=== PATIENT | female | born 1960 | race American Indian/Alaskan Native ===

== ENCOUNTER 2016-09-26 10:29 | Outpatient (CLI) | payer BC ==
--- NOTE | 2016-09-27 14:52 | Mammography Report ---
BILATERAL DIGITAL SCREENING MAMMOGRAM with CAD : 09/26/16 10:29:00 CLINICAL: Routine screening. COMPARISON:09/19/15 FINDINGS: The breasts are heterogeneously dense, which may obscure small masses.Stable widely scattered bilateral calcifications with benign morphology. No mass, architectural distortion or suspicious calcifications. IMPRESSION: No mammographic evidence of malignancy. BI-RADS CATEGORY: 2 -- Benign RECOMMENDATION: Routine mammographic screening in one year. COMMENT: Patient follow-up letters are generated by our [employer] application.
== END 2016-09-26 10:30 | disposition home or self-care (01) ==
LOC: SPVWC 10:29
PROVIDERS: ATTEND Internal Medicine
DX: Z12.31 Encounter for screening mammogram for malignant neoplasm of breast (principal); I10 Essential (primary) hypertension
CPT/HCPCS: 77067; G0202

== ENCOUNTER 2017-03-17 17:22 | Emergency (ER) | payer BC ==
[2017-03-17 17:28] VITALS: BP 146/83
--- NOTE | 2017-03-17 23:59 | Emergency Department Report ---
ED ENT HPI - General Chief complaint: Earache Stated complaint: RIGHT EAR PAIN Time Seen by Provider: 03/17/17 23:55 Source: patient Mode of arrival: Ambulatory Limitations: No Limitations - History of Present Illness Initial comments: 56-year-old female past medical history gout presents with complaint of one week of right earache. Patient denies fevers or chills nausea or vomiting headache blurry vision or tinnitus. Denies any discharge from the ear. States she was using [id number] eardrops with minimal relief of her discomfort. MD complaint: ear pain Onset/Timin -: week(s) Location: R ear Severity: moderate Severity scale (0 -10): 5 Quality: aching Consistency: constant Improves with: none - Related Data Home Medications Medication Instructions Recorded Confirmed Last Taken Atenolol/Chlorthalidone [Tenoretic 1 tab PO QDAY 03/27/15 03/27/15 Unknown 50-25] Previous Rx's Medication Instructions Recorded Last Taken Type Acetamin/Codeine 120-12Mg/5 ml 5 ml PO TID PRN #30 ml 06/06/15 Unknown Rx [Tylenol/Codeine] Ciprofloxacin HCl [Ciprofloxacin 500 mg PO Q12HR #14 tab 06/06/15 Unknown Rx TAB] Acetaminophen/Codeine [Tylenol 1 tab PO Q6H PRN #20 tab 08/24/15 Unknown Rx /Codeine # 3 tab] Cyclobenzaprine [Flexeril] 10 mg PO TID PRN #30 tablet 08/24/15 Unknown Rx Ibuprofen [Motrin] 600 mg PO Q8H PRN #40 tablet 08/24/15 Unknown Rx Amoxicillin/K Clav Tab [Augmentin 1 tab PO Q12HR #14 tab 03/17/17 Unknown Rx 875 mg] Ibuprofen [Motrin] 800 mg PO Q8HR PRN #30 tablet 03/17/17 Unknown Rx Allergies Allergy/AdvReac Type Severity Reaction Status Date / Time lisinopril Allergy Unknown Verified 08/24/15 16:08 ED Dental HPI - General Chief complaint: Earache Stated complaint: RIGHT EAR PAIN Time Seen by Provider: 03/17/17 23:55 Source: patient Mode of arrival: Ambulatory Limitations: No Limitations - Related Data Home Medications Medication Instructions Recorded Confirmed Last Taken Atenolol/Chlorthalidone [Tenoretic 1 tab PO QDAY 03/27/15 03/27/15 Unknown 50-25] Previous Rx's Medication Instructions Recorded Last Taken Type Acetamin/Codeine 120-12Mg/5 ml 5 ml PO TID PRN #30 ml 06/06/15 Unknown Rx [Tylenol/Codeine] Ciprofloxacin HCl [Ciprofloxacin 500 mg PO Q12HR #14 tab 06/06/15 Unknown Rx TAB] Acetaminophen/Codeine [Tylenol 1 tab PO Q6H PRN #20 tab 08/24/15 Unknown Rx /Codeine # 3 tab] Cyclobenzaprine [Flexeril] 10 mg PO TID PRN #30 tablet 08/24/15 Unknown Rx Ibuprofen [Motrin] 600 mg PO Q8H PRN #40 tablet 08/24/15 Unknown Rx Amoxicillin/K Clav Tab [Augmentin 1 tab PO Q12HR #14 tab 03/17/17 Unknown Rx 875 mg] Ibuprofen [Motrin] 800 mg PO Q8HR PRN #30 tablet 03/17/17 Unknown Rx Allergies Allergy/AdvReac Type Severity Reaction Status Date / Time lisinopril Allergy Unknown Verified 08/24/15 16:08 ED Review of Systems ROS: Stated complaint: RIGHT EAR PAIN Other details as noted in HPI Constitutional: denies: chills, fever Eyes: denies: eye pain, eye discharge, vision change ENT: ear pain. denies: throat pain Respiratory: denies: cough, shortness of breath, wheezing Cardiovascular: denies: chest pain, palpitations Endocrine: no symptoms reported Gastrointestinal: denies: abdominal pain, nausea, diarrhea Genitourinary: denies: urgency, dysuria, discharge Musculoskeletal: denies: back pain, joint swelling, arthralgia Skin: denies: rash, lesions Neurological: denies: headache, weakness, paresthesias Psychiatric: denies: anxiety, depression Hematological/Lymphatic: denies: easy bleeding, easy bruising ED Past Medical Hx - Past Medical History Hx Hypertension: Yes (SINCE 1980) - Surgical History Additional Surgical History: CS,rt breast surgery - Social History Smoking Status: Never Smoker Substance Use Type: None - Medications Home Medications: Home Medications Medication Instructions Recorded Confirmed Last Taken Type Atenolol/Chlorthalidone [Tenoretic 1 tab PO QDAY 03/27/15 03/27/15 Unknown History 50-25] Acetamin/Codeine 120-12Mg/5 ml 5 ml PO TID PRN #30 ml 06/06/15 Unknown Rx [Tylenol/Codeine] Ciprofloxacin HCl [Ciprofloxacin 500 mg PO Q12HR #14 tab 06/06/15 Unknown Rx TAB] Acetaminophen/Codeine [Tylenol 1 tab PO Q6H PRN #20 tab 08/24/15 Unknown Rx /Codeine # 3 tab] Cyclobenzaprine [Flexeril] 10 mg PO TID PRN #30 tablet 08/24/15 Unknown Rx Ibuprofen [Motrin] 600 mg PO Q8H PRN #40 tablet 08/24/15 Unknown Rx Amoxicillin/K Clav Tab [Augmentin 1 tab PO Q12HR #14 tab 03/17/17 Unknown Rx 875 mg] Ibuprofen [Motrin] 800 mg PO Q8HR PRN #30 tablet 03/17/17 Unknown Rx ED Physical Exam - General Limitations: No Limitations General appearance: alert, in no apparent distress - Head Head exam: Present: atraumatic, normocephalic - Eye Eye exam: Present: normal appearance, PERRL, EOMI - ENT ENT exam: Present: mucous membranes moist - Expanded ENT Exam Expanded TM/Canal exam: Erythema: Right TM (TM inflamed no perforation and no clinical signs of mastoiditis on external exam), Bulging: Right TM - Neck Neck exam: Present: normal inspection - Respiratory Respiratory exam: Present: normal lung sounds bilaterally. Absent: respiratory distress - Cardiovascular Cardiovascular Exam: Present: regular rate, normal rhythm. Absent: systolic murmur, diastolic murmur, rubs, gallop - GI/Abdominal GI/Abdominal exam: Present: soft, normal bowel sounds - Extremities Exam Extremities exam: Present: normal inspection - Back Exam Back exam: Present: normal inspection - Neurological Exam Neurological exam: Present: alert, oriented X3 - Psychiatric Psychiatric exam: Present: normal affect, normal mood - Skin Skin exam: Present: warm, dry, intact, normal color. Absent: rash ED Course Vital Signs 03/17/17 17:25 Temperature 98.6 F Pulse Rate 83 Respiratory 16 Rate Blood Pressure 146/83 O2 Sat by Pulse 98 Oximetry ED Medical Decision Making - Medical Decision Making A/P: Right otitis media 1-Augmentin, Motrin when necessary 2-follow up with PMD 3-no clinical signs or symptoms of mastoiditis, hearing intact Critical care attestation.: If time is entered above; I have spent that time in minutes in the direct care of this critically ill patient, excluding procedure time. ED Disposition Clinical Impression: Otitis media Qualifiers: Otitis media type: suppurative Chronicity: acute Laterality: right Recurrence: not specified as recurrent Spontaneous tympanic membrane rupture: without spontaneous rupture Qualified Code(s): H66.001 - Acute suppurative otitis media without spontaneous rupture of ear drum, right ear Disposition: - TO HOME OR SELFCARE Is pt being admited?: No Does the pt Need Aspirin: No Condition: Stable Instructions: Otitis Media (ED) Prescriptions: Amoxicillin/K Clav Tab [Augmentin 875 mg] 1 tab PO Q12HR #14 tab Ibuprofen [Motrin] 800 mg PO Q8HR PRN #30 tablet PRN Reason: Pain Referrals: PRIMARY CARE, [Primary Care Provider] - 3-5 Days [facility] [Outside] - 3-5 Days [facility] [Outside] - 3-5 Days Forms: Work/School Release Form(ED) Time of Disposition: 23:58
== END 2017-03-18 00:05 | disposition home or self-care (01) ==
LOC: ED 17:22
DX: H66.001 Acute suppurative otitis media without spontaneous rupture of ear drum, right ear (principal); I10 Essential (primary) hypertension; Z88.8 Allergy status to other drugs, medicaments and biological substances

== ENCOUNTER 2017-11-03 08:05 | Outpatient (CLI) | payer BC ==
--- NOTE | 2017-11-03 14:16 | Mammography Report ---
BILATERAL DIGITAL SCREENING MAMMOGRAM with CAD : 11/03/17 08:05:00 CLINICAL: Routine screening. COMPARISON:09/26/16 FINDINGS: The breasts are heterogeneously dense, which may obscure small masses.Bilateral scattered calcifications with benign morphology. No mass, architectural distortion or suspicious calcifications. IMPRESSION: No mammographic evidence of malignancy. BI-RADS CATEGORY: 2 -- Benign RECOMMENDATION: Routine mammographic screening in one year. COMMENT: Patient follow-up letters are generated by our [employer] application.
== END 2017-11-03 08:06 | disposition home or self-care (01) ==
LOC: SPVWC 08:05
PROVIDERS: ATTEND Internal Medicine
DX: Z12.31 Encounter for screening mammogram for malignant neoplasm of breast (principal); I10 Essential (primary) hypertension
CPT/HCPCS: 77067

== ENCOUNTER 2018-11-27 10:59 | Outpatient (CLI) | payer BC ==
[2018-11-27 11:38] LABS: Hematocrit 33.6 % (30.3-42.9); Mean Corpuscular HGB Conc 33 % (30-34); Mean Corpuscular Volume 83 fl (79-97); Platelet Count 377 K/mm3 (140-440); Red Blood Count 4.04 M/mm3 (3.65-5.03)
[2018-11-27 11:44] LABS: Bacteria,Urine 1+ /HPF (Negative); Bilirubin,Urine NEG (Negative); Blood,Urine NEG (Negative); Color,Urine Yellow (Yellow); Mucus,Urine FEW /HPF; Urobilinogen,Urine < 2.0 mg/dL (<2.0)
[2018-11-27 11:48] LABS: INR 1.02 (0.87-1.13)
[2018-11-27 11:49] LABS: Partial Thromboplastin Time 30.9 Sec. (24.2-36.6)
[2018-11-27 12:07] LABS: BUN/Creatinine Ratio 14; Blood Urea Nitrogen 15 mg/dL (7-17); Calcium 9.5 mg/dL (8.4-10.2); Hemolysis Index 7
[2018-11-27 12:51] LABS: Protein/Creatinine Ratio,Urine 2.52
[2018-12-01 10:16] LABS: Albumin 3.5 g/dL (3.8-4.8); Gamma Globulin 1.4 g/dL (0.8-1.7)
[2018-12-03 12:50] LABS: ANA Screen, IFA Positive (Negative)
== END 2018-11-27 11:00 | disposition home or self-care (01) ==
LOC: LAB 10:59
PROVIDERS: ATTEND Internal Medicine Nephrology
DX: I12.9 Hypertensive chronic kidney disease with stage 1 through stage 4 chronic kidney disease, or unspecified chronic kidney disease (principal); N18.3 Chronic kidney disease, stage 3 (moderate); R80.0 Isolated proteinuria
CPT/HCPCS: 36415; 80048; 81001; 82570; 83615; 83735; 84156; 84165; 85027; 85610; 85730; 86038; 86160; 86334; 86706; 86803; 87806

== ENCOUNTER 2021-08-01 08:59 | Emergency (ER) | payer BC ==
--- NOTE | 2021-08-01 11:24 | Emergency Department Report ---
ED Lower Extremity HPI - General Chief Complaint: Extremity Problem,Nontraumatic Stated Complaint: PAIN IN LEFT BACK CALF Time Seen by Provider: 08/01/21 09:58 Source: patient Mode of arrival: Ambulatory Limitations: No Limitations - History of Present Illness Initial Comments: Gabriella is a pleasant 61-year-old -[place]ux[place]bour[place] female that comes to the ER with left calf pain. She denies any fall or trauma. She states that it has been crampy for about the last week. She has no history of DVT or PE. Patient is obese but has no other risk factors for VTE. She denies chest pain or shortness of breath. She denies fever or chills. Patient is ambulatory to the ER. Complaint: other -: Gradual, days(s) Place: home Improves With: nothing Worsens With: nothing - Related Data Home Medications Medication Instructions Recorded Confirmed Last Taken Atenolol/Chlorthalidone [Tenoretic 1 tab PO QDAY 03/27/15 03/27/15 Unknown 50-25] Previous Rx's Medication Instructions Recorded Last Taken Type Acetamin/Codeine 120-12Mg/5 ml 5 ml PO TID PRN #30 ml 06/06/15 Unknown Rx [Tylenol/Codeine] Ciprofloxacin HCl [Ciprofloxacin 500 mg PO Q12HR #14 tab 06/06/15 Unknown Rx TAB] Acetaminophen/Codeine [Tylenol 1 tab PO Q6H PRN #20 tab 08/24/15 Unknown Rx /Codeine # 3 tab] Cyclobenzaprine [Flexeril] 10 mg PO TID PRN #30 tablet 08/24/15 Unknown Rx Ibuprofen [Motrin] 600 mg PO Q8H PRN #40 tablet 08/24/15 Unknown Rx Amoxicillin/K Clav Tab [Augmentin 1 tab PO Q12HR #14 tab 03/17/17 Unknown Rx 875 mg] Ibuprofen [Motrin] 800 mg PO Q8HR PRN #30 tablet 03/17/17 Unknown Rx Allergies Allergy/AdvReac Type Severity Reaction Status Date / Time lisinopril Allergy Unknown Verified 08/24/15 16:08 ED Review of Systems ROS: Stated complaint: PAIN IN LEFT BACK CALF Other details as noted in HPI Comment: All other systems reviewed and negative ED Past Medical Hx - Past Medical History Hx Hypertension: Yes (SINCE 1980) - Surgical History Past Surgical History?: Yes Additional Surgical History: CS,rt breast surgery - Family History Family history: no significant - Social History Smoking Status: Never Smoker Substance Use Type: None - Medications Home Medications: Home Medications Medication Instructions Recorded Confirmed Last Taken Type Atenolol/Chlorthalidone [Tenoretic 1 tab PO QDAY 03/27/15 03/27/15 Unknown History 50-25] Acetamin/Codeine 120-12Mg/5 ml 5 ml PO TID PRN #30 ml 06/06/15 Unknown Rx [Tylenol/Codeine] Ciprofloxacin HCl [Ciprofloxacin 500 mg PO Q12HR #14 tab 06/06/15 Unknown Rx TAB] Acetaminophen/Codeine [Tylenol 1 tab PO Q6H PRN #20 tab 08/24/15 Unknown Rx /Codeine # 3 tab] Cyclobenzaprine [Flexeril] 10 mg PO TID PRN #30 tablet 08/24/15 Unknown Rx Ibuprofen [Motrin] 600 mg PO Q8H PRN #40 tablet 08/24/15 Unknown Rx Amoxicillin/K Clav Tab [Augmentin 1 tab PO Q12HR #14 tab 03/17/17 Unknown Rx 875 mg] Ibuprofen [Motrin] 800 mg PO Q8HR PRN #30 tablet 03/17/17 Unknown Rx ED Physical Exam - General Limitations: No Limitations General appearance: alert, in no apparent distress - Head Head exam: Present: atraumatic, normocephalic - Eye Eye exam: Present: normal appearance - ENT ENT exam: Present: mucous membranes moist - Neck Neck exam: Present: normal inspection - Respiratory Respiratory exam: Present: normal lung sounds bilaterally. Absent: respiratory distress - Cardiovascular Cardiovascular Exam: Present: regular rate, normal rhythm. Absent: systolic murmur, diastolic murmur, rubs, gallop - GI/Abdominal GI/Abdominal exam: Present: soft, normal bowel sounds - Extremities Exam Extremities exam: Present: normal inspection - Back Exam Back exam: Present: normal inspection - Neurological Exam Neurological exam: Present: alert, oriented X3 - Psychiatric Psychiatric exam: Present: normal affect, normal mood - Skin Skin exam: Present: warm, dry, intact, normal color. Absent: rash ED Course Vital Signs 08/01/21 08/01/21 08/01/21 09:16 12:41 12:43 Temperature 98.0 F 98.6 F 98.6 F Pulse Rate 86 77 77 Respiratory 18 20 20 Rate Blood Pressure 147/85 124/78 Blood Pressure 132/89 [Right] O2 Sat by Pulse 97 99 99 Oximetry ED Lower Extremity MDM - Radiology Data Radiology results: report reviewed, image reviewed No acute DVT - Medical Decision Making Vital Signs 08/01/21 09:16 Temperature 98.0 F Pulse Rate 86 Respiratory 18 Rate Blood Pressure 147/85 O2 Sat by Pulse 97 Oximetry Ultrasound negative for DVT. Patient is neurovascularly intact. DP and PT pulses +2. She has sensation. Rapid cap refill. She has full range of motion of her foot and ankle as well as her knee. Her calf is soft. Distal foot is warm. Patient will be treated for soft tissue injury. Patient being sent home with discharge plan of care including diet, activity, medications and follow-up. She verbalizes understanding. On discharge patient ambulatory neurovascularly intact. - Differential Diagnosis Rule out DVT/musculoskeletal pain Critical care attestation.: If time is entered above; I have spent that time in minutes in the direct care of this critically ill patient, excluding procedure time. ED Disposition Clinical Impression: Obese Calf pain Qualifiers: Laterality: left Qualified Code(s): M79.662 - Pain in left lower leg Disposition: HOME / SELF CARE / HOMELESS Is pt being admited?: No Does the pt Need Aspirin: No Condition: Stable Additional Instructions: Warm compresses to leg. Do not rub the leg. Motrin or Tylenol for pain. Follow-up with PCP if pain persist Referrals: HARIKA BARNES MD [Primary Care Provider] - 3-5 Days Time of Disposition: 11:55
--- NOTE | 2021-08-01 11:47 | Vascular Lab Report ---
DUPLEX DOPPLER LOWER EXTREMITY VEINS, LEFT INDICATION: Swelling. TECHNIQUE: Duplex doppler imaging was performed through the veins of the left lower extremity using venous compr ession and other maneuvers. COMPARISON: None available. FINDINGS: Common femoral vein: Negative. Superficial femoral vein: Negative. Popliteal vein: Negative. Calf veins: Negative. Additional findings: None. IMPRESSION: Negative for DVT. Signer Name: Jorge Padgett MD Signed: 08/01/2021 11:43 AM Workstation Name: [id number]
[2021-08-01 12:45] VITALS: BP 124/78
== END 2021-08-01 12:45 | disposition home or self-care (01) ==
LOC: ED 08:59
DX: M79.662 Pain in left lower leg (principal); E66.9 Obesity, unspecified; I10 Essential (primary) hypertension; Z79.899 Other long term (current) drug therapy; Z98.890 Other specified postprocedural states; Z91.09 Other allergy status, other than to drugs and biological substances
CPT/HCPCS: 99283